=== PATIENT | male | born 1970 | race African-American/Black ===

== ENCOUNTER 2017-08-14 10:59 | Inpatient (IN) | payer SELFPAY ==
[~2017-08-14] VITALS: Ht 175.3 cm; Wt 65.8 kg
[2017-08-14] MEDS ORDERED: IBUP-1636 PO (11:03)
[2017-08-14] MEDS ORDERED: IBUPROFEN 600MG TABLET PO ONE (12:30)
[2017-08-14 14:19] LABS: BASOPHILS % 0.1 % (0.0-2.0); EOSINOPHILS % 0.5 % (0.0-5.0); HEMATOCRIT. 21.1 % (42.0-52.0); HEMOGLOBIN. 7.3 g/dL (14.0-18.0); LYMPHOCYTES % 7.7 % (20.0-50.0); MEAN CORPUSCULAR HEMOGLOBIN 33.4 pg (28.0-32.0); MEAN CORPUSCULAR VOLUME 97.3 fL (80.0-94.0); MEAN PLATELET VOLUME 6.2 fl (7.4-10.4); MONOCYTES % 13.8 % (2.0-8.0); NEUTROPHILS % 77.9 % (40.0-76.0); PLATELET 413 x1000/uL (130-400); RED BLOOD CELL COUNT 2.17 mill/uL (4.7-6.1); RED CELL DISTRIBUTION WIDTH 13.7 % (11.6-14.6)
[2017-08-14 14:26] LABS: INR 1.9; PROTHROMBIN TIME 19.4 sec (9.4-11.6)
[2017-08-14 14:27] LABS: CLARITY URINE CLOUDY (CLEAR); COLOR URINE YELLOW (YELLOW); GLUCOSE URINE NEGATIVE (NEGATIVE); KETONES URINE TRACE (NEGATIVE); LEUKOCYTE ESTERASE URINE 3+ (NEGATIVE); NITRITE URINE POSITIVE (NEGATIVE); OCCULT BLOOD URINE TRACE (NEGATIVE); PROTEIN URINE TRACE (NEGATIVE); SPECIFIC GRAVITY URINE 1.017 (1.005-1.030); UROBILINOGEN URINE 0.2 E.U./dL (0.2-1.0)
[2017-08-14 14:35] LABS: CHLORIDE 107 mEq/L (98-107)
[2017-08-14 14:40] LABS: CARBON DIOXIDE 9 mEq/L (21-32)
[2017-08-14] MEDS ORDERED: CEFTRIAXONE 1 G PREMIX 50 ML IV ONE (14:45)
[2017-08-14] MEDS ORDERED: SODIUM CHLORIDE 0.9% 1,000 ML IV ONE (14:45)
[2017-08-14 15:55] LABS: *AMPHETAMINES SCREEN URINE NEGATIVE (NEGATIVE); *BARBITURATES SCREEN URINE NEGATIVE (NEGATIVE); *BENZODIAZEPINES SCREEN URINE NEGATIVE (NEGATIVE); *COCAINE SCREEN URINE NEGATIVE (NEGATIVE); CANNABINOID URINE SCREEN NEGATIVE (NEGATIVE); METHADONE URINE SCREEN NEGATIVE (NEGATIVE); OPIATES URINE SCREEN NEGATIVE (NEGATIVE); PHENCYCLIDINE URINE SCREEN PRESUMTIVE POSITIVE (NEGATIVE)
[2017-08-14 17:00] VITALS: BP 145/88
[2017-08-14] MEDS ORDERED: INFLUENZA VIRUS VACCINE 0.5ML SYR IM ONE (19:15)
[2017-08-14] MEDS ORDERED: ONDANSETRON HCL 4MG/2ML VIAL IV PRN (19:45)
[2017-08-14 20:00] VITALS: BP 137/79
[2017-08-14] MEDS: SODIUM CHLORIDE 0.9% 1,000 ML IV SCH (20:18)
[2017-08-14] MEDS: MORPHINE SULFATE 10 MG/ML CPJ IV PRN (20:23)
[2017-08-15] VITALS: BP 140/80
[2017-08-15] MEDS: MORPHINE SULFATE 10 MG/ML CPJ IV PRN (03:10)
[2017-08-15 04:00] VITALS: BP 136/81
[2017-08-15] MEDS: SODIUM CHLORIDE 0.9% 1,000 ML IV SCH ×2 (05:42→18:35)
[2017-08-15] MEDS ORDERED: POTASSIUM CHLORIDE 20MEQ TABLET SR PO SCH ×2 (07:30→09:30)
[2017-08-15 07:47] VITALS: BP 143/87
[2017-08-15 12:00] VITALS: BP 122/82
[2017-08-15 16:29] VITALS: BP 141/87
[2017-08-15 20:00] VITALS: BP 142/88
[2017-08-15] MEDS ORDERED: GUAIFENESIN 200MG/10ML SUGAR FREE UDC PO PRN (20:15)
[2017-08-15] MEDS ORDERED: LORAZEPAM 2MG/ML CPJ IV PRN (20:15)
[2017-08-15] MEDS ORDERED: DIPHENHYDRAMINE 50MG/ML VIAL IV PRN (20:15)
[2017-08-15] MEDS ORDERED: ACETAMINOPHEN 650MG SUPP PR PRN (20:15)
[2017-08-15] MEDS ORDERED: IPRATROPIUM/ALBUTEROL 0.5-3(2.5)MG/3ML NEB INH PRN (20:15)
[2017-08-15] MEDS ORDERED: DOCUSATE SODIUM 100MG CAPSULE PO PRN (20:15)
[2017-08-15] MEDS ORDERED: ONDANSETRON HCL 4MG/2ML VIAL IV PRN (20:15)
[2017-08-15] MEDS ORDERED: NA PHOS,M-B/NA PHOS,DI-BA ENEMA 118ML PR PRN (20:15)
[2017-08-15] MEDS ORDERED: SODIUM BICARBONATE 150 MEQ in DEXTROSE 5% WATER 1,000 ML IV SCH (20:15)
[2017-08-15] MEDS ORDERED: MAGNESIUM/ALUMINUM HYDROXIDE/SIMETHICONE 30ML UDC PO PRN (20:15)
[2017-08-15] MEDS ORDERED: ACETAMINOPHEN 650MG/20.3ML UDC GT PRN (20:15)
[2017-08-15] MEDS ORDERED: SODIUM BICARBONATE 8.4% 1 MEQ/ML 50ML SYR IV ONE (20:45)
[2017-08-15 21:49] LABS: MEAN CORPUSCULAR HEMOGLOBIN 33.4 pg (28.0-32.0); MEAN CORPUSCULAR VOLUME 97.4 fL (80.0-94.0); MEAN PLATELET VOLUME 5.9 fl (7.4-10.4); PLATELET 394 x1000/uL (130-400); RED CELL DISTRIBUTION WIDTH 13.9 % (11.6-14.6)
[2017-08-15 21:58] LABS: HEMATOCRIT. 18.5 % (42.0-52.0); HEMOGLOBIN. 6.3 g/dL (14.0-18.0)
[2017-08-15] MEDS ORDERED: MVI, ADULT NO.1 10 ML, FOLIC ACID 1 MG, THIAMINE HCL 100 MG in SODIUM CHLORIDE 0.9% 1,0... IV NR ×4 (22:00)
[2017-08-15 22:05] LABS: CARBON DIOXIDE 14 mEq/L (21-32); CHLORIDE 115 mEq/L (98-107); ETHANOL BLOOD < 10 mg/dL; HDL CHOLESTEROL 30 mg/dL (40-59); LDL CHOLESTEROL 69 mg/dL (5-100)
[2017-08-15] MEDS ORDERED: POTASSIUM CHLORIDE 20MEQ TABLET SR PO NR (23:00)
[2017-08-15] MEDS: SODIUM CHLORIDE 0.9% INJ 3ML FLUSH IVF SCH (23:12)
[2017-08-15] MEDS: HYDROCODONE/ACETAMINOPHEN 5/325MG TABLET PO PRN (23:15)
[2017-08-15 23:16] LABS: PLATELET ESTIMATE NORMAL
[2017-08-16] VITALS (16 sets, daily range): BP systolic 132–173; BP diastolic 74–98
[2017-08-16] MEDS ORDERED: POTASSIUM CHLORIDE 20MEQ TABLET SR PO NR ×2 (01:00→17:00)
[2017-08-16] MEDS: SODIUM CHLORIDE 0.9% 1,000 ML IV SCH ×2 (01:45→11:45)
[2017-08-16] MEDS: SODIUM CHLORIDE 0.9% INJ 3ML FLUSH IVF SCH ×3 (07:07→21:40)
[2017-08-16] MEDS: ENOXAPARIN 40MG/0.4ML SYR SUBCUT SCH (08:07)
[2017-08-16] MEDS: ACETAMINOPHEN 325MG TABLET PO PRN (10:57)
[2017-08-16] MEDS ORDERED: AMLODIPINE 10MG TABLET PO NR (12:30)
[2017-08-16 16:24] LABS: HEMOGLOBIN. 9.1 g/dL (14.0-18.0); MEAN CORPUSCULAR HEMOGLOBIN 31.6 pg (28.0-32.0); MEAN CORPUSCULAR VOLUME 93.4 fL (80.0-94.0); MEAN PLATELET VOLUME 5.8 fl (7.4-10.4); PLATELET 387 x1000/uL (130-400); RED BLOOD CELL COUNT 2.89 mill/uL (4.7-6.1); RED CELL DISTRIBUTION WIDTH 15.4 % (11.6-14.6)
[2017-08-16 16:35] LABS: INR 1.2; PROTHROMBIN TIME 12.9 sec (9.4-11.6)
[2017-08-16 16:55] LABS: CARBON DIOXIDE 19 mEq/L (21-32); CHLORIDE 117 mEq/L (98-107); HDL CHOLESTEROL 35 mg/dL (40-59); LDL CHOLESTEROL 63 mg/dL (5-100)
[2017-08-16] MEDS ORDERED: METR250T PO (16:56)
[2017-08-16] MEDS ORDERED: LEVO500T2 PO (16:57)
[2017-08-16] MEDS ORDERED: LEVOFLOXACIN 500MG TABLET PO NR (17:00)
[2017-08-16] MEDS ORDERED: AMLO10TA4 PO (17:00)
[2017-08-16] MEDS ORDERED: METRONIDAZOLE 500MG TABLET PO NR (17:00)
[2017-08-16] MEDS ORDERED: PROT40 PO (17:00)
[2017-08-16] MEDS: HYDROCODONE/ACETAMINOPHEN 5/325MG TABLET PO PRN (17:32)
[2017-08-16 18:10] LABS: CREATINE KINASE 18 IU/L (39-308)
[2017-08-16 18:58] LABS: PLATELET ESTIMATE NORMAL
[2017-08-16] MEDS: METRONIDAZOLE 500MG TABLET PO SCH (21:41)
[2017-08-17 00:02] VITALS: BP 127/74
[2017-08-17 04:00] VITALS: BP 136/83
[2017-08-17] MEDS: METRONIDAZOLE 500MG TABLET PO SCH ×3 (06:15→21:05)
[2017-08-17] MEDS: PANTOPRAZOLE 40MG DR TABLET PO SCH (06:16)
[2017-08-17] MEDS: SODIUM CHLORIDE 0.9% INJ 3ML FLUSH IVF SCH ×3 (06:16→21:05)
[2017-08-17] MEDS: HYDROCODONE/ACETAMINOPHEN 5/325MG TABLET PO PRN (06:16)
[2017-08-17 07:55] VITALS: BP 138/85
[2017-08-17] MEDS ORDERED: LEVOFLOXACIN 500MG TABLET PO SCH (11:00)
[2017-08-17 11:17] VITALS: BP 144/86
[2017-08-17 15:59] VITALS: BP 146/93
[2017-08-17 18:19] LABS: HEMATOCRIT. 26.6 % (42.0-52.0); HEMOGLOBIN. 8.9 g/dL (14.0-18.0); MEAN CORPUSCULAR HEMOGLOBIN 31.3 pg (28.0-32.0); MEAN CORPUSCULAR VOLUME 93.3 fL (80.0-94.0); MEAN PLATELET VOLUME 6.2 fl (7.4-10.4); RED BLOOD CELL COUNT 2.85 mill/uL (4.7-6.1); RED CELL DISTRIBUTION WIDTH 15.9 % (11.6-14.6)
[2017-08-17 18:34] LABS: CHLORIDE 113 mEq/L (98-107)
[2017-08-17 18:39] LABS: CARBON DIOXIDE 20 mEq/L (21-32)
[2017-08-17 19:32] LABS: NUCLEATED RED BLOOD CELLS 1 /100 WBC; PLATELET ESTIMATE NORMAL
[2017-08-17 19:35] LABS: PLATELET 361 x1000/uL (130-400)
[2017-08-17] MEDS ORDERED: SODIUM BICARBONATE 150 MEQ in DEXTROSE 5% WATER 1,000 ML IV SCH (20:16)
[2017-08-17 20:50] VITALS: BP 142/80
[2017-08-17] MEDS: ACETAMINOPHEN 325MG TABLET PO PRN (21:05)
[2017-08-18] VITALS: BP 128/88
[2017-08-18] MEDS: COLCHICINE 0.6MG TABLET PO SCH ×3 (00:39→21:19)
[2017-08-18] MEDS ORDERED: SODIUM BICARBONATE 8.4% 1 MEQ/ML 50ML SYR IV NR (01:00)
[2017-08-18 04:00] VITALS: BP 130/82
[2017-08-18] MEDS: METRONIDAZOLE 500MG TABLET PO SCH ×3 (06:25→21:19)
[2017-08-18] MEDS: INDOMETHACIN 25MG CAPSULE PO SCH ×3 (06:25→21:19)
[2017-08-18] MEDS: SODIUM CHLORIDE 0.9% INJ 3ML FLUSH IVF SCH ×3 (06:25→21:19)
[2017-08-18] MEDS: PANTOPRAZOLE 40MG DR TABLET PO SCH (06:25)
[2017-08-18 08:00] VITALS: BP 146/93
[2017-08-18] MEDS: ENOXAPARIN 40MG/0.4ML SYR SUBCUT SCH (10:52)
[2017-08-18] MEDS: ACETAMINOPHEN 325MG TABLET PO PRN (10:53)
[2017-08-18 12:00] VITALS: BP 157/93
[2017-08-18] MEDS: LEVOFLOXACIN 500MG PREMIX 100 ML IV SCH (13:00)
[2017-08-18 13:19] LABS: INR 1.5; PROTHROMBIN TIME 15.5 sec (9.4-11.6)
[2017-08-18 13:23] LABS: HEMATOCRIT. 25.7 % (42.0-52.0); HEMOGLOBIN. 8.6 g/dL (14.0-18.0); MEAN CORPUSCULAR HEMOGLOBIN 31.5 pg (28.0-32.0); MEAN CORPUSCULAR VOLUME 94.2 fL (80.0-94.0); MEAN PLATELET VOLUME 6.2 fl (7.4-10.4); PLATELET 310 x1000/uL (130-400); RED BLOOD CELL COUNT 2.73 mill/uL (4.7-6.1); RED CELL DISTRIBUTION WIDTH 15.6 % (11.6-14.6)
[2017-08-18 13:26] LABS: CARBON DIOXIDE 21 mEq/L (21-32); CHLORIDE 110 mEq/L (98-107)
[2017-08-18 16:00] VITALS: BP 153/104
[2017-08-18 19:24] LABS: PLATELET ESTIMATE NORMAL
[2017-08-18 20:00] VITALS: BP 138/90
[2017-08-18] MEDS: CEFTRIAXONE 1 G PREMIX 50 ML IV SCH (23:10)
[2017-08-19 00:11] VITALS: BP 153/98
[2017-08-19 04:00] VITALS: BP 153/90
[2017-08-19] MEDS: SODIUM CHLORIDE 0.9% INJ 3ML FLUSH IVF SCH ×3 (06:08→22:13)
[2017-08-19] MEDS: INDOMETHACIN 25MG CAPSULE PO SCH ×3 (06:09→22:13)
[2017-08-19] MEDS: METRONIDAZOLE 500MG TABLET PO SCH ×3 (06:09→22:13)
[2017-08-19] MEDS: PANTOPRAZOLE 40MG DR TABLET PO SCH (06:09)
[2017-08-19 08:00] VITALS: BP 160/96
[2017-08-19 08:40] LABS: GLUCOSE URINE NEGATIVE (NEGATIVE); KETONES URINE NEGATIVE (NEGATIVE); LEUKOCYTE ESTERASE URINE TRACE (NEGATIVE); NITRITE URINE NEGATIVE (NEGATIVE); OCCULT BLOOD URINE TRACE (NEGATIVE); PROTEIN URINE 2+ (NEGATIVE); SPECIFIC GRAVITY URINE 1.016 (1.005-1.030); UROBILINOGEN URINE 0.2 E.U./dL (0.2-1.0)
[2017-08-19 08:41] LABS: CLARITY URINE CLEAR (CLEAR); COLOR URINE YELLOW (YELLOW)
[2017-08-19] MEDS: COLCHICINE 0.6MG TABLET PO SCH (09:38)
[2017-08-19] MEDS: ENOXAPARIN 40MG/0.4ML SYR SUBCUT SCH (09:39)
[2017-08-19 12:00] VITALS: BP 137/88
[2017-08-19] MEDS: LEVOFLOXACIN 500MG PREMIX 100 ML IV SCH ×2 (12:46→14:38)
[2017-08-19 15:57] VITALS: BP 141/88
[2017-08-19 20:00] VITALS: BP 146/86
[2017-08-19 20:17] LABS: HEMOGLOBIN. 8.5 g/dL (14.0-18.0); MEAN CORPUSCULAR HEMOGLOBIN 30.7 pg (28.0-32.0); MEAN CORPUSCULAR VOLUME 93.4 fL (80.0-94.0); MEAN PLATELET VOLUME 6.3 fl (7.4-10.4); PLATELET 279 x1000/uL (130-400); RED BLOOD CELL COUNT 2.78 mill/uL (4.7-6.1); RED CELL DISTRIBUTION WIDTH 15.8 % (11.6-14.6)
[2017-08-19 20:22] LABS: CARBON DIOXIDE 21 mEq/L (21-32); CHLORIDE 109 mEq/L (98-107)
[2017-08-19 20:33] LABS: PLATELET ESTIMATE NORMAL
[2017-08-19] MEDS: CEFTRIAXONE 1 G PREMIX 50 ML IV SCH (22:13)
[2017-08-20] VITALS: BP 163/98
[2017-08-20 04:00] VITALS: BP 161/98
[2017-08-20] MEDS: ACETAMINOPHEN 325MG TABLET PO PRN (04:18)
[2017-08-20] MEDS: INDOMETHACIN 25MG CAPSULE PO SCH ×3 (06:38→21:25)
[2017-08-20] MEDS: SODIUM CHLORIDE 0.9% INJ 3ML FLUSH IVF SCH ×3 (06:38→21:24)
[2017-08-20] MEDS: METRONIDAZOLE 500MG TABLET PO SCH ×3 (06:38→21:24)
[2017-08-20] MEDS: PANTOPRAZOLE 40MG DR TABLET PO SCH (06:38)
[2017-08-20 08:00] VITALS: BP 164/96
[2017-08-20] MEDS: ENOXAPARIN 40MG/0.4ML SYR SUBCUT SCH (08:29)
[2017-08-20] MEDS: COLCHICINE 0.6MG TABLET PO SCH (08:29)
[2017-08-20 11:19] LABS: BASOPHILS % 0.3 % (0.0-2.0); HEMATOCRIT. 28.8 % (42.0-52.0); HEMOGLOBIN. 9.6 g/dL (14.0-18.0); LYMPHOCYTES % 8.3 % (20.0-50.0); MEAN CORPUSCULAR HEMOGLOBIN 31.5 pg (28.0-32.0); MEAN CORPUSCULAR VOLUME 94.1 fL (80.0-94.0); MEAN PLATELET VOLUME 6.5 fl (7.4-10.4); MONOCYTES % 9.6 % (2.0-8.0); NEUTROPHILS % 79.8 % (40.0-76.0); PLATELET 291 x1000/uL (130-400); RED BLOOD CELL COUNT 3.06 mill/uL (4.7-6.1); RED CELL DISTRIBUTION WIDTH 15.8 % (11.6-14.6)
[2017-08-20 11:35] LABS: CARBON DIOXIDE 21 mEq/L (21-32); CHLORIDE 107 mEq/L (98-107)
[2017-08-20 12:00] VITALS: BP 122/83
[2017-08-20] MEDS ORDERED: COLC0.6T66 PO (12:05)
[2017-08-20] MEDS ORDERED: PREDNISONE 20MG TABLET PO SCH (12:15)
[2017-08-20 16:00] VITALS: BP 174/106
[2017-08-20] MEDS: ALLOPURINOL 100 MG TABLET PO SCH (17:13)
[2017-08-20 20:00] VITALS: BP 117/70
[2017-08-20] MEDS: ASCORBIC ACID 250 MG TABLET PO SCH (21:24)
[2017-08-20] MEDS: MULTIVITAMINS,THER W-MINERALS TABLET PO SCH (21:24)
[2017-08-20] MEDS: ZINC SULFATE 220 MG ( 50 ) CAPSULE PO SCH (21:24)
[2017-08-20] MEDS: CEFTRIAXONE 1 G PREMIX 50 ML IV SCH (23:27)
[2017-08-21] VITALS: BP 120/80
[2017-08-21 04:00] VITALS: BP 130/88
[2017-08-21] MEDS: INDOMETHACIN 25MG CAPSULE PO SCH ×3 (06:12→21:14)
[2017-08-21] MEDS: METRONIDAZOLE 500MG TABLET PO SCH ×3 (06:12→21:14)
[2017-08-21] MEDS: PANTOPRAZOLE 40MG DR TABLET PO SCH (06:12)
[2017-08-21] MEDS: SODIUM CHLORIDE 0.9% INJ 3ML FLUSH IVF SCH ×3 (06:12→21:14)
[2017-08-21 08:00] VITALS: BP 168/99
[2017-08-21] MEDS: COLCHICINE 0.6MG TABLET PO SCH (10:14)
[2017-08-21] MEDS: MULTIVITAMINS,THER W-MINERALS TABLET PO SCH (10:14)
[2017-08-21] MEDS: ALLOPURINOL 100 MG TABLET PO SCH ×2 (10:15→17:12)
[2017-08-21] MEDS: ASCORBIC ACID 250 MG TABLET PO SCH ×2 (10:15→21:14)
[2017-08-21 12:00] VITALS: BP 165/100
[2017-08-21] MEDS: ZINC SULFATE 220 MG ( 50 ) CAPSULE PO SCH (12:17)
[2017-08-21] MEDS: LEVOFLOXACIN 500MG PREMIX 100 ML IV SCH (12:18)
[2017-08-21 15:33] LABS: HEMATOCRIT. 28.8 % (42.0-52.0); HEMOGLOBIN. 9.6 g/dL (14.0-18.0); MEAN CORPUSCULAR HEMOGLOBIN 31.2 pg (28.0-32.0); MEAN CORPUSCULAR VOLUME 93.7 fL (80.0-94.0); MEAN PLATELET VOLUME 7.2 fl (7.4-10.4); PLATELET 269 x1000/uL (130-400); RED BLOOD CELL COUNT 3.07 mill/uL (4.7-6.1); RED CELL DISTRIBUTION WIDTH 16.2 % (11.6-14.6)
[2017-08-21 15:44] LABS: CARBON DIOXIDE 22 mEq/L (21-32); CHLORIDE 105 mEq/L (98-107)
[2017-08-21 16:00] VITALS: BP 157/94
[2017-08-21 17:26] LABS: ATYPICAL LYMPHOCYTES 1; PLATELET ESTIMATE NORMAL
[2017-08-21] MEDS ORDERED: PREDNISONE 20MG TABLET PO NR (18:15)
[2017-08-21] MEDS ORDERED: POTASSIUM CHLORIDE 20MEQ TABLET SR PO NR (18:30)
[2017-08-21 20:00] VITALS: BP 116/78
[2017-08-21] MEDS: CEFTRIAXONE 1 G PREMIX 50 ML IV SCH (23:28)
[2017-08-22] VITALS: BP 120/80
[2017-08-22 04:00] VITALS: BP 126/70
[2017-08-22] MEDS: SODIUM CHLORIDE 0.9% INJ 3ML FLUSH IVF SCH ×3 (06:02→21:45)
[2017-08-22] MEDS: METRONIDAZOLE 500MG TABLET PO SCH ×3 (06:02→21:45)
[2017-08-22] MEDS: PANTOPRAZOLE 40MG DR TABLET PO SCH (06:02)
[2017-08-22] MEDS: INDOMETHACIN 25MG CAPSULE PO SCH ×3 (06:02→21:45)
[2017-08-22 08:00] VITALS: BP 133/64
[2017-08-22] MEDS: COLCHICINE 0.6MG TABLET PO SCH (08:44)
[2017-08-22] MEDS: MULTIVITAMINS,THER W-MINERALS TABLET PO SCH (08:44)
[2017-08-22] MEDS: ZINC SULFATE 220 MG ( 50 ) CAPSULE PO SCH (08:44)
[2017-08-22] MEDS: ALLOPURINOL 100 MG TABLET PO SCH ×2 (08:44→17:06)
[2017-08-22] MEDS: ASCORBIC ACID 250 MG TABLET PO SCH ×2 (08:44→21:45)
[2017-08-22 11:57] VITALS: BP 157/97
[2017-08-22] MEDS: LEVOFLOXACIN 500MG PREMIX 100 ML IV SCH (12:27)
[2017-08-22] MEDS ORDERED: POTASSIUM CHLORIDE 20MEQ TABLET SR PO NR (14:00)
[2017-08-22] MEDS ORDERED: PREDNISONE 20MG TABLET PO NR (14:00)
[2017-08-22 16:00] VITALS: BP 152/95
[2017-08-22] MEDS: ACETAMINOPHEN 325MG TABLET PO PRN (18:19)
[2017-08-22 20:00] VITALS: BP 149/82
[2017-08-22] MEDS: CEFTRIAXONE 1 G PREMIX 50 ML IV SCH (23:01)
[2017-08-23] VITALS: BP 159/100
[2017-08-23 04:00] VITALS: BP 144/95
[2017-08-23] MEDS: SODIUM CHLORIDE 0.9% INJ 3ML FLUSH IVF SCH (06:36)
[2017-08-23] MEDS: PANTOPRAZOLE 40MG DR TABLET PO SCH (06:37)
[2017-08-23] MEDS: INDOMETHACIN 25MG CAPSULE PO SCH (06:37)
[2017-08-23] MEDS: METRONIDAZOLE 500MG TABLET PO SCH (06:37)
[2017-08-23 07:31] VITALS: BP 157/101
[2017-08-23] MEDS: ALLOPURINOL 100 MG TABLET PO SCH (07:58)
[2017-08-23] MEDS: ZINC SULFATE 220 MG ( 50 ) CAPSULE PO SCH (07:58)
[2017-08-23] MEDS: MULTIVITAMINS,THER W-MINERALS TABLET PO SCH (07:59)
[2017-08-23] MEDS: COLCHICINE 0.6MG TABLET PO SCH (07:59)
[2017-08-23] MEDS: ASCORBIC ACID 250 MG TABLET PO SCH (07:59)
[2017-08-23 10:29] VITALS: BP 120/88
[2017-08-23 10:33] VITALS: BP 120/88
== END 2017-08-23 11:30 | disposition home or self-care (01) | DRG 282 ==
LOC: ER 11:23 → 6WST 15:15 → ENRESERV 15:32
PROVIDERS: ADMIT Family Medicine; ATTEND Family Medicine
PROC: 30233N1 Transfusion of Nonautologous Red Blood Cells into Peripheral Vein, Percutaneous Approach (ICD-10-PCS; principal; 2017-08-14)
DX: K85.90 Acute pancreatitis without necrosis or infection, unspecified (principal); J18.9 Pneumonia, unspecified organism; D64.9 Anemia, unspecified; I10 Essential (primary) hypertension; E87.6 Hypokalemia; F10.10 Alcohol abuse, uncomplicated; F17.210 Nicotine dependence, cigarettes, uncomplicated; G89.29 Other chronic pain; R60.0 Localized edema; M10.9 Gout, unspecified; M79.604 Pain in right leg; M79.605 Pain in left leg; R26.2 Difficulty in walking, not elsewhere classified
CPT/HCPCS: 36415; 71010; 72148; 76700; 80048; 80053; 80061; 80305; 81001; 82270; 82550; 83036; 83690; 83735; 83880; 84550; 85025; 85384; 85610; 86850; 86900; 86920; 87040; 87086; 90686; 93005; 93970; 96365; 97110; 97116; 97162; 97166; 97530; 97535; 99285; A6261; G0482; J0696; J1650; J1956; J2270; J3411; J3490; J7030; J7040; J7050; J7060; J7512; J7620; P9016